=== PATIENT | male | born 1975 | race Two or more races ===

== ENCOUNTER 2019-03-08 21:29 | Emergency (ER) | payer SELFPAY ==
[~2019-03-08] VITALS: Ht 172.7 cm; Wt 85.3 kg
[2019-03-08 21:35] VITALS: BP 141/91
== END 2019-03-08 23:55 | disposition left against medical advice (07) ==
LOC: ER 21:31
DX: T78.40XA Allergy, unspecified, initial encounter (principal); X58.XXXA Exposure to other specified factors, initial encounter; Z53.21 Procedure and treatment not carried out due to patient leaving prior to being seen by health care provider

== ENCOUNTER 2023-04-02 11:41 | Emergency (ER) | payer OTHER ==
[~2023-04-02] VITALS: Ht 172.7 cm; Wt 93.7 kg
[2023-04-02] MEDS: KETOROLAC TROMETH 60MG/2ML VIAL IM ONE (13:43)
[2023-04-02] MEDS: PROCHLORPERAZINE EDISYLATE 5 MG/ML 2ML VIAL IM ONE (13:44)
[2023-04-02] MEDS: diphenhdrAMINE HCL 50 MG/1 ML VL IM ONE (13:44)
[2023-04-02 14:12] VITALS: BP 133/85; PULSE 78; RESP 16; TEMP 98.2; O2SAT 92
[2023-04-02] MEDS: SODIUM CHLORIDE 0.9% 1,000 ML IV ONE (14:15)
[2023-04-02 14:16] LABS: Chloride 107 mmol/L (98-107); Potassium 4.6 mmol/L (3.5-5.1); Sodium 139 mmol/L (136-145)
[2023-04-02 14:17] LABS: Anion Gap 3 (5-15); Calcium 9.3 mg/dL (8.5-10.1); Carbon Dioxide 29 mmol/L (20-30)
[2023-04-02 14:22] LABS: Glucose 114 mg/dL (74-106)
[2023-04-02 14:23] LABS: Basophils # (auto) 0.1 10 ^3/uL (0-0.2); Basophils % (auto) 2.6 % (0.0-2.0); Eosinophils # (auto) 0 10 ^3/uL (0-0.8); Eosinophils % (auto) 0.7 % (0.0-7.0); Hematocrit 46.6 % (41.0-53.0); Hemoglobin 15.6 g/dL (13.5-17.5); Lymphocytes # (auto) 1.7 10 ^3/uL (0.4-5.4); Lymphocytes % (auto) 29.2 % (10.0-50.0); Mean Corpuscular Hemoglobin 30.3 pg (28.0-32.0); Mean Corpuscular Hgb Conc. 33.6 g/dL (32.0-36.0); Mean Corpuscular Volume 90.3 fL (80.0-100.0); Monocytes # (auto) 0.4 10 ^3/uL (0-1.3); Monocytes % (auto) 7.1 % (0.0-12.0); Neutrophils # (auto) 3.5 10 ^3/uL (1.6-8.6); Neutrophils % (auto) 60.4 % (37.0-80.0); Nucleated Red Blood Cells % 0.3 %; Red Blood Cells 5.15 10^6/uL (4.5-5.90); Red Cell Distribution Width 13.8 % (11.8-14.3); White Blood Cell 5.7 10^3/uL (4.4-10.8)
[2023-04-02] MEDS ORDERED: MAGN400T40 PO (15:00)
[2023-04-02] MEDS ORDERED: IBUP1TAB5 PO (15:00)
[2023-04-02 15:42] LABS: BUN/Creatinine Ratio 17.4 (10.0-20.0); Blood Urea Nitrogen 15 mg/dL (9-23)
== END 2023-04-02 15:13 | disposition home or self-care (01) ==
LOC: ER 11:41
DX: G43.909 Migraine, unspecified, not intractable, without status migrainosus (principal); R07.89 Other chest pain
CPT/HCPCS: 36415; 80048; 84484; 85025; 93005; 96360; 96372; 99284; J0780; J1200; J1885; J7030